=== PATIENT | female | born 1980 | race Caucasian/White ===

== ENCOUNTER 2018-02-10 20:14 | Emergency (ER) | payer SELFPAY ==
[~2018-02-10] VITALS: Ht 165.1 cm; Wt 92.3 kg
[2018-02-10 20:48] VITALS: Ht 165.1 cm; Wt 92.3 kg
[2018-02-10 23:51] VITALS: BP 113/59
== END 2018-02-10 23:51 | disposition home or self-care (01) ==
LOC: ED 20:14
DX: S83.91XA Sprain of unspecified site of right knee, initial encounter (principal); X50.1XXA Overexertion from prolonged static or awkward postures, initial encounter; Y93.64 Activity, baseball; Y92.89 Other specified places as the place of occurrence of the external cause; Y99.8 Other external cause status